=== PATIENT | female | born 1950 | race Caucasian/White ===

== ENCOUNTER 2017-12-28 10:16 | Emergency (ER) | payer MEDICARE, OTHER ==
[~2017-12-28] VITALS: Ht 170.2 cm; Wt 73.9 kg
[2017-12-28 10:41] VITALS: BP 155/92
[2017-12-28] MEDS ORDERED: methylPREDNISolone ACETATE 80 MG/ML VIAL. IM ONE (10:45)
[2017-12-28] MEDS ORDERED: PRED20TA PO (10:49)
[2017-12-28] MEDS ORDERED: HYDR25CA PO (10:49)
--- NOTE | 2017-12-28 10:49 | PHYS DOC ---
Adult General Chief Complaint Chief Complaint: SUNBURN HPI HPI 67-year-old female presents with diffuse rash. She states she was out in the sun and got a pretty significant sunburn couple of weeks ago but is now had a rash where she's had some skin flaking on her hands as well as maculopapular rash on her trunk and legs. She states the rash doesn't particularly itchy. She' s had a similar rash in the past that was treated with steroids. She denies any new medications. She does state that she's been using hotel soap.] Review of Systems Review of Systems Constitutional: Denies fever or chills [] Eyes: Denies change in visual acuity, redness, or eye pain [] HENT: Denies nasal congestion or sore throat [] Respiratory: Denies cough or shortness of breath [] Cardiovascular: No additional information not addressed in HPI [] GI: Denies abdominal pain, nausea, vomiting, bloody stools or diarrhea [] : Denies dysuria or hematuria [] Musculoskeletal: Denies back pain or joint pain [] Integument: Per history of present illness[] Neurologic: Denies headache, focal weakness or sensory changes [] Endocrine: Denies polyuria or polydipsia [] All other systems were reviewed and found to be within normal limits, except as documented in this note. Allergies Allergies Allergies Coded Allergies Type Severity Reaction Last Updated Verified No Known Drug Allergies 12/28/17 No Physical Exam Physical Exam Constitutional: Well developed, well nourished, no acute distress, non-toxic appearance. [] HENT: Normocephalic, atraumatic, bilateral external ears normal, oropharynx moist, no oral exudates, nose normal. [] Eyes: PERRLA, EOMI, conjunctiva normal, no discharge. [] Neck: Normal range of motion, no tenderness, supple, no stridor. [] Cardiovascular:Heart rate regular rhythm, no murmur [] Lungs & Thorax: Bilateral breath sounds clear to auscultation [] Abdomen: Bowel sounds normal, soft, no tenderness, no masses, no pulsatile masses. [] Skin: Diffuse maculopapular rash most prominent on the trunk and upper legs linear in nature[] Back: No tenderness, no CVA tenderness. [] Extremities: No tenderness, no cyanosis, no clubbing, ROM intact, no edema. [] Neurologic: Alert and oriented X 3, normal motor function, normal sensory function, no focal deficits noted. [] Psychologic: Affect normal, judgement normal, mood normal. [] EKG EKG [] Radiology/Procedures Radiology/Procedures [] Course & Med Decision Making Course & Med Decision Making Pertinent Labs and Imaging studies reviewed. (See chart for details) [] Dragon Disclaimer Dragon Disclaimer This electronic medical record was generated, in whole or in part, using a voice recognition dictation system. Departure Departure: Impression: Primary Impression: Dermatitis Disposition: HOME, SELF-CARE Condition: STABLE Referrals: NON,STAFF (PCP) Patient Instructions: Rash Additional Instructions: Use medication as directed. Follow with her primary care physician next week for recheck. Return to the emergency department with any new or concerning symptoms Scripts Hydroxyzine Pamoate (VISTARIL) 25 Mg Capsule 1 CAP PO TID, #90 CAP 1 Refill Prov: FOUZIA RAMÍREZ DO 12/28/17 Prednisone (PREDNISONE) 20 Mg Tablet 1 TAB PO BID for Bronchitis, #20 TAB Prov: FOUZIA RAMÍREZ DO 12/28/17 FOUZIA RAMÍREZ DO Dec 28, 2017 10:49
== END 2017-12-28 10:58 | disposition home or self-care (01) ==
LOC: ER 10:16
DX: L30.9 Dermatitis, unspecified (principal)
CPT/HCPCS: 96372; 99283; J1040